=== PATIENT | female | born 1930 | race Caucasian/White ===

== ENCOUNTER → 2016-02-23 | Outpatient (CLI) | payer MEDICARE, OTHER ==
[~2016-02-23] MED LIST: ACET325 PO; GLUCTAB PO; LEVO75TA3 PO; LOSA50TA PO
[2016-02-23 11:19] LABS: ANION GAP 6 MEQ/L (5-15); BICARBONATE 28.7 MEQ/L (21.0-32.0); BLOOD UREA NITROGEN 25 MG/DL (7-18); CHLORIDE 100 MEQ/L (98-107); GLOMERULAR FILTRATION RATE 54 ML/MIN (>89); GLUCOSE,FASTING 155 MG/DL (74-99); POTASSIUM 4.8 MEQ/L (3.5-5.1); SODIUM (NA) 135 MEQ/L (136-145)
[2016-02-23 11:28] LABS: FREE T4 1.14 NG/DL (0.76-1.46); HDL CHOLESTEROL 108.4 MG/DL (40.0-60.0); LDL CHOLESTEROL 76 MG/DL (0-99)
[2016-02-23 17:37] LABS: HEMOGLOBIN A1a 1.1 %; HEMOGLOBIN A1b 0.9 %; HEMOGLOBIN F 0.8 %; HEMOGLOBIN LA1C 2.4 %
== END ==
LOC: CLAB 10:22
DX: E11.40 Type 2 diabetes mellitus with diabetic neuropathy, unspecified (principal); E03.9 Hypothyroidism, unspecified
CPT/HCPCS: 36415; 80048; 80061; 83036; 84439; 84443

== ENCOUNTER → 2016-08-14 | Outpatient (CLI) | payer MEDICARE, OTHER ==
[2016-08-14 10:19] LABS: BICARBONATE 25.8 MEQ/L (21.0-32.0); POTASSIUM 4.8 MEQ/L (3.5-5.1)
[2016-08-14 10:30] LABS: FREE T4 1.05 NG/DL (0.76-1.46)
== END ==
LOC: CLAB 09:14
DX: E11.65 Type 2 diabetes mellitus with hyperglycemia (principal); E03.9 Hypothyroidism, unspecified
CPT/HCPCS: 36415; 80048; 84439; 84443

== ENCOUNTER → 2017-02-19 | Outpatient (CLI) | payer MEDICARE, OTHER ==
[2017-02-19 10:59] LABS: BICARBONATE 28.8 MEQ/L (21.0-32.0); BLOOD UREA NITROGEN 13 MG/DL (7-18); CHLORIDE 99 MEQ/L (98-107); CREATININE 0.78 MG/DL (0.50-1.00); GLOMERULAR FILTRATION RATE 70 ML/MIN (>89); GLUCOSE,FASTING 216 MG/DL (74-99); SODIUM (NA) 133 MEQ/L (136-145)
[2017-02-19 11:08] LABS: FREE T4 1.08 NG/DL (0.76-1.46)
[2017-02-19 15:51] LABS: HEMOGLOBIN A1C 6.5 % (4.3-6.0)
== END ==
LOC: CLAB 09:59
DX: E03.9 Hypothyroidism, unspecified (principal); E11.65 Type 2 diabetes mellitus with hyperglycemia
CPT/HCPCS: 36415; 80048; 83036; 84439; 84443

== ENCOUNTER → 2017-07-18 | Outpatient (CLI) | payer MEDICARE, OTHER ==
[2017-07-18 10:07] LABS: CHOLESTEROL 166 MG/DL (120-200); TRIGLYCERIDES 47 MG/DL (42-150)
[2017-07-18 10:11] LABS: BICARBONATE 25.1 MEQ/L (21.0-32.0); BLOOD UREA NITROGEN 10 MG/DL (7-18); CALCIUM 8.9 MG/DL (8.5-10.1); CHLORIDE 96 MEQ/L (98-107); CREATININE 0.71 MG/DL (0.50-1.00); GLOMERULAR FILTRATION RATE 78 ML/MIN (>89); GLUCOSE,FASTING 154 MG/DL (74-99); SODIUM (NA) 131 MEQ/L (136-145)
[2017-07-18 10:16] LABS: CHOLESTEROL/ HDL RATIO 2.01 RATIO; HDL CHOLESTEROL 82.2 MG/DL (40.0-60.0); LDL CHOLESTEROL 74 MG/DL (0-99)
[2017-07-18 16:22] LABS: HEMOGLOBIN A1C 6.3 % (4.3-6.0)
== END ==
LOC: CLAB 09:05
PROVIDERS: ATTEND Family Medicine
DX: E11.9 Type 2 diabetes mellitus without complications (principal); E03.8 Other specified hypothyroidism
CPT/HCPCS: 36415; 80048; 80061; 82043; 83036; 84443

== ENCOUNTER → 2017-07-27 | Outpatient (CLI) | payer MEDICARE, OTHER ==
[2017-07-27 12:34] LABS: AUTOMATED NEUTROPHIL # 1.9 TH/MM3 (1.8-7.7); BASOPHIL % 0.8 % (0.0-2.0); EOSINOPHIL # 0.1 TH/MM3 (0-0.4); EOSINOPHIL % 3.3 % (0.0-4.0); HEMATOCRIT 35.1 % (35.0-46.0); HEMOGLOBIN 11.8 GM/DL (11.6-15.3); LYMPHOCYTE # 0.7 TH/MM3 (1.0-4.8); MEAN CELL VOLUME 87.7 FL (80.0-100.0); MEAN CORPUSCULAR HEMOGLOBIN 29.5 PG (27.0-34.0); MEAN CORPUSCULAR HGB CONC 33.7 % (32.0-36.0); MEAN PLATELET VOLUME 7.5 FL (7.0-11.0); MONO % 10.2 % (0.0-8.0); MONOCYTE # 0.3 TH/MM3 (0-0.9); NEUT % 61.7 % (16.0-70.0); PLATELET COUNT 281 TH/MM3 (150-450); RED BLOOD COUNT 4.01 MIL/MM3 (4.00-5.30); RED CELL DISTRIBUTION WIDTH 13.9 % (11.6-17.2); WHITE BLOOD COUNT 3.1 TH/MM3 (4.0-11.0)
[2017-07-27 21:31] LABS: TOTAL BILIRUBIN ADULT 0.3 MG/DL (0.2-1.0); TOTAL PROTEIN 7.4 GM/DL (6.4-8.2)
[2017-07-27 21:35] LABS: ALBUMIN 3.9 GM/DL (3.4-5.0); DIRECT BILIRUBIN ADULT 0.1 MG/DL (0.0-0.2); INDIRECT BILIRUBIN 0.2 MG/DL (0.0-0.8)
== END ==
LOC: CLAB 11:24
PROVIDERS: ATTEND Family Medicine
DX: K30 Functional dyspepsia (principal); R53.83 Other fatigue
CPT/HCPCS: 36415; 80076; 85025